=== PATIENT | male | born 1965 | race Caucasian/White ===

== ENCOUNTER 2023-06-30 13:14 | Inpatient (IN) | payer OTHER ==
[2023-06-30] VITALS (8 sets, daily range): BP systolic 155–221; BP diastolic 118–156
[~2023-06-30] VITALS: Ht 170.2 cm; Wt 89.0 kg
[2023-06-30 14:00] LABS: BASOPHILS PERCENT AUTO 1 % (0-2); EOSINOPHILS ABSOLUTE AUTO 0.18 K/mm3 (0.00-0.68); EOSINOPHILS PERCENT AUTO 2 % (0-6); Hematocrit 46.9 % (37.0-53.0); Hemoglobin 15.6 g/dL (13.5-17.5); IMMATURE GRAN ABSOLUTE AUTO 0.03 K/mm3 (0.00-0.10); IMMATURE GRAN PERCENT AUTO 0 % (0-1); LYMPHOCYTES ABSOLUTE AUTO 2.01 K/mm3 (0.84-5.20); LYMPHOCYTES PERCENT AUTO 18 % (21-46); MONOCYTES ABSOLUTE AUTO 0.94 K/mm3 (0.16-1.47); MONOCYTES PERCENT AUTO 9 % (4-13); Mean Corpuscular HGB 29.2 pg (26.0-34.0); Mean Corpuscular HGB Conc 33.3 g/dL (31.5-36.5); Mean Corpuscular Volume 88 fL (80-100); Mean Platelet Volume 10.2 fL (9.1-12.4); NEUTROPHILS ABSOLUTE AUTO 7.65 K/mm3 (1.96-9.15); NEUTROPHILS PERCENT AUTO 70 % (41-73); Platelet Count 235 K/mm3 (150-400); RDW Coefficient Variation 15.9 % (11.7-14.2); RDW Standard Deviation 49.7 fL (35.1-46.3); Red Blood Cell Count 5.34 M/mm3 (4.30-5.90); White Blood Cell Count 10.91 K/mm3 (4.00-11.30)
[2023-06-30 14:17] LABS: Albumin, Blood 3.5 g/dL (3.4-5.0); Albumin/Globulin Ratio 1.1 (0.8-1.8); Bilirubin, Total 1.1 mg/dL (0.1-1.0); Bun/Creatinine Ratio 19.7 (12.0-20.0); Calcium, Blood 8.5 mg/dL (8.5-10.1); Creatinine, Blood 1.32 mg/dL (0.60-1.20); Globulin, Blood 3.2 g/dL (2.2-4.0); Potassium, Blood 4.1 mmol/L (3.5-5.5); Total Protein, Blood 6.7 g/dL (6.4-8.2)
[2023-07-01] VITALS (13 sets, daily range): BP systolic 139–186; BP diastolic 99–139
[2023-07-01 03:51] LABS: Base Excess Venous 2.5 mmol/L; Bicarbonate Venous 26.7 mmol/L (24.0-30.0); PCO2 Venous 33.6 mmHg (38-42); pH Blood Venous 7.49 (7.34-7.37)
[2023-07-01 03:53] LABS: BASOPHILS ABSOLUTE AUTO 0.09 K/mm3 (0.00-0.23); BASOPHILS PERCENT AUTO 1 % (0-2); EOSINOPHILS ABSOLUTE AUTO 0.27 K/mm3 (0.00-0.68); EOSINOPHILS PERCENT AUTO 2 % (0-6); Hematocrit 42.1 % (37.0-53.0); Hemoglobin 13.9 g/dL (13.5-17.5); IMMATURE GRAN ABSOLUTE AUTO 0.04 K/mm3 (0.00-0.10); IMMATURE GRAN PERCENT AUTO 0 % (0-1); LYMPHOCYTES PERCENT AUTO 17 % (21-46); MONOCYTES ABSOLUTE AUTO 1.43 K/mm3 (0.16-1.47); MONOCYTES PERCENT AUTO 12 % (4-13); Mean Corpuscular HGB 29.6 pg (26.0-34.0); Mean Corpuscular Volume 90 fL (80-100); Mean Platelet Volume 10.4 fL (9.1-12.4); NEUTROPHILS ABSOLUTE AUTO 7.77 K/mm3 (1.96-9.15); NEUTROPHILS PERCENT AUTO 67 % (41-73); Platelet Count 211 K/mm3 (150-400); RDW Coefficient Variation 15.8 % (11.7-14.2); RDW Standard Deviation 50.7 fL (35.1-46.3); Red Blood Cell Count 4.69 M/mm3 (4.30-5.90)
[2023-07-01 04:08] LABS: Albumin, Blood 3.1 g/dL (3.4-5.0); Albumin/Globulin Ratio 1.1 (0.8-1.8); Bilirubin, Total 0.7 mg/dL (0.1-1.0); Bun/Creatinine Ratio 16.5 (12.0-20.0); Calcium, Blood 8.2 mg/dL (8.5-10.1); Creatinine, Blood 1.33 mg/dL (0.60-1.20); Globulin, Blood 2.9 g/dL (2.2-4.0); Potassium, Blood 3.8 mmol/L (3.5-5.5)
--- NOTE | 2023-07-01 05:16 | NUR ---
SHIFT SUMMARY PT A/OX4 AND COOPERATIVE OF CARE. PT ABLE TO EXPRESS NEEDS AND CALLS APPROPIATE. PT BP'S ELEVATED, SEE CHART. OTHER VSS THROUGHOUT SHIFT WITH O2 SATS INT EH 90'S ON RA. NO REPORT OF CHEST PAIN/PRESSURE THROUGHOUT SHIFT. NO REPORT OF SOB/DYSPNE THROUGHOUT SHIFT. PT REPORTED THAT HIS BREATHING "FEELS MUCH BETTER NOW." PT USING URINAL AT BEDSIDE. PT EDUCATED ON CURRENT ILLNESS AND MEDICATIONS THAT HE HAS RECIEVED.
--- NOTE | 2023-07-01 17:15 | NUR ---
SHIFT SUMMARY: PT HAS BEEN A&Ox4, ANSWERS QUESTIONS APPROPRIATELY AND COOPERATIVE W/CARE. PT DENIES SOB, STATES "I CAN BREATHE SO MUCH EASIER NOW", O2 SATS >92% ON RA. PT DENIES CHEST PAIN, HTN CONTINUES T/OUT SHIFT, PT MEDICATED PER EMAR W/SCHEDULED AND PRN MEDICATION W/SOME IMPROVEMENT TOWARD THE END OF THIS SHIFT. PT IS CONTINENT, HAS BEEN WALKING TO BATHROOM INDEPENDENTLY AND IS TOLERATING WELL. PT AND FAMILY WOULD BENEFIT FROM CONTINUED EDUCATION RE: DIET, EXERCISE, CURRENT ILLNESS AND HOW THEY ARE ALL RELATED. DIETARY CONSULTATION HAS BEEN ORDERED. AT THIS TIME, PT IS RESTING QUIETLY IN BEDSIDE CHAIR W/CALL LIGHT IN REACH. WILL CONTINUE TO MONITOR AND TREAT ACCORDINGLY.
[2023-07-02] VITALS (15 sets, daily range): BP systolic 139–175; BP diastolic 88–129
--- NOTE | 2023-07-02 04:52 | NUR ---
SHIFT SUMMARY PT A/OX4 AND COOPERATIVE OF CARE. PT ABLE TO EXPRESS NEEDS AND CALLS APPROPIATE. PT BP'S CONTINUE TO BE ELVATED, TREATED PER EMAR. BP DAILY MEDS INCREASED DURING DAY SHIFT. OTHER VSS THROUGHOUT SHIFT WITH O2 SATS IN CHRIS 90' ON RA. NO REPORT OF CHEST PAIN/PRESSURE THROUGOUT SHIFT. NO REPORT OF SOB/DYSPNEA THROUGHOUT SHIFT. PT UP TO TOUILET MULTIPLE TIMES DURING SHIFT, INDEPENDENT, TOLERATED WELL. PT HAD APNEIC EPISODES WHILE SLEEPING. SEE PREVIOUS NOTES. PT RPEORTS BE ABLE TO BREATH BETTER TODAY.
--- NOTE | 2023-07-02 13:37 | NUR ---
AM NOTE: PT HAS BEEN A&Ox4, ANSWERING QUESTIONS APPROPRIATELY, COOPERATIVE W/CARE. RESPIRATIONS EVEN AND UNLABORED, O2 SATS >93% ON RA, PT CONTINUES TO REPORT IMPROVEMENT TO INITIAL SOB. SR ON MONITOR, RATE 80s-90s, PT DENIES CHEST PAIN. HTN CONTINUES, PT RECEIVES ONE DOSE OF PRN MEDICATION AND TAKES SCHEDULED MEDICATIONS W/OUT DIFFICULTY. PT CONTINUES INDEPENDENT IN ROOM. CARDIOLOGY CONSULT TAKES PLACE THIS MORNING AT BEDSIDE, W/AN ANGIOGRAM BEING RECOMMENDED. PT HAS NOT AGREED TO PROCEDURE AT THIS POINT. DR TOWNSEND AND THIS RN HAVE BOTH PROVIDED EDUCATION RE: PROCEDURE AND RISKS/BENEFITS. DIETARY CONSULT HAS ALSO OCCURED AT BEDSIDE. WILL CONTINUE TO MONITOR AND TREAT ACCORDINGLY.
--- NOTE | 2023-07-02 17:37 | NUR ---
SHIFT SUMMARY: HTN CONTINUES, PT HAS BEEN MEDICATED PER EMAR. PT HAS AGREED TO PLAN OF ANGIOGRAM, HAS SIGNED CONSENT, CHIEF DIVERSITY OFFICER AND HOSPITALIST HAVE BEEN INFORMED, AWAITING FURTHER ORDERS. PT CONTINUES A&Ox4, COOPERATIVE W/CARE, INDEPENDENT IN ROOM. ALL ASSESSMENTS FOR IGNITABLE SOURCES HAVE BEEN NEGATIVE. PT RESTING IN ROOM W/FAMILY AT BEDSIDE. WILL CONTINUE TO MONITOR AND TREAT ACCORDINGLY UNTIL CHANGE OF SHIFT.
[2023-07-03] VITALS (12 sets, daily range): BP systolic 130–178; BP diastolic 87–115
[2023-07-03 04:23] LABS: Bun/Creatinine Ratio 18.1 (12.0-20.0); Calcium, Blood 8.3 mg/dL (8.5-10.1); Creatinine, Blood 1.27 mg/dL (0.60-1.20); Magnesium, Blood 2.4 mg/dL (1.6-2.4)
--- NOTE | 2023-07-03 05:41 | NUR ---
SHIFT SUMMARY NO ACUTE CHANGES THIS SHIFT. PT A&OX4. SP02>90% ON RA. DESATS WHEN SLEEPING. CALL TO MD LEVINE FOR CPAP. MD LEVINE W/ ORDERS FOR CPAP. PT WORE CPAP ENTIRE NIGHT W/O DESATTING. PT STATES, "WOW! i SLEPT!". TELEMETRY SHOWS NSR, HR 60'S-80'S. BP ELEVATED, HYDRALAZINE GIVEN PER EMAR X1 THIS SHIFT. PT INDEPENDENT IN ROOM. SHOWERED AT START OF SHIFT. SLEPT MOST OF NIGHT. NPO SINCE MIDNIGHT FOR CATH 07/03. CALL LIGHT IN REACH.
--- NOTE | 2023-07-03 07:29 | NUR ---
CARE ASSUMPTION / GONE FOR PROCEDURE PT SLEEPING, WEARING CPAP, TRANSITIONED TO RA WHEN WOKEN TO BE TAKEN DOWN FOR ANGIOGRAM. PT A&O X4, STATES "THAT'S THE BEST SLEEP I'VE EVER GOTTEN. I HAVEN'T DREAMT LIKE THAT IN YEARS." PT REPORTS THIS WAS FIRST TIME WEARING CPAP. MONITOR SHOWING SR-ST, HR 90s-110. BP ELEVATED, OTHERWISE VSS. PT TAKEN BY BED FOR ANGIOGRAM @ APPROX 0730.
--- NOTE | 2023-07-03 08:14 | NUR ---
BACK FROM DATA INTEGRITY ANALYST PT BACK TO W/ R RADIAL ACCESS SITE. TR BAND & ARM BOARD IN PLACE TO R WRIST. SITE WNL. PT A&O X4. VSS. SPO2 > 92% ON RA. PT AT BEDSIDE.
[2023-07-03] MEDS ORDERED: LISI20 PO (14:31)
[2023-07-03] MEDS ORDERED: ASPI81CH PO (14:31)
[2023-07-03] MEDS ORDERED: ATOR80 PO (14:31)
[2023-07-03] MEDS ORDERED: METO100ER PO (14:32)
[2023-07-03] MEDS ORDERED: TORSE20 PO (14:32)
--- NOTE | 2023-07-03 15:57 | NUR ---
DISCHARGE HOME PT A&O X4. VSS. SPO2 > 92% ON RA. R RADIAL ACCESS SITE RECOVERED WNL. TRANSPARENT DRESSING APPLIED & ARM BOARD IN PLACE. PT UNDERSTANDING & COMPLIANT W/ RADIAL ACCESS MOBILITY RESTRICTIONS. PIV REMOVED. DISCHARGE INSTRUCTIONS REVIEWED W/ PT & SENT HOME W/ PT. PT TAKEN OUT BY WHEELCHAIR W/ SPOUSE & BELONGINGS @ APPROX 1450.
== END 2023-07-03 14:50 | disposition home or self-care (01) | DRG 286 ==
LOC: ER 13:14 → PCU 16:24
PROVIDERS: Physician Assistant; ADMIT Internal Medicine
PROC: 4A023N7 Measurement of Cardiac Sampling and Pressure, Left Heart, Percutaneous Approach (ICD-10-PCS; principal; 2023-07-03)
PROC: B2111ZZ Fluoroscopy of Multiple Coronary Arteries using Low Osmolar Contrast (ICD-10-PCS; 2023-07-03)
DX: I11.0 Hypertensive heart disease with heart failure (principal); I50.21 Acute systolic (congestive) heart failure; N17.9 Acute kidney failure, unspecified; I16.0 Hypertensive urgency; G47.33 Obstructive sleep apnea (adult) (pediatric); I27.20 Pulmonary hypertension, unspecified; I25.10 Atherosclerotic heart disease of native coronary artery without angina pectoris; F17.210 Nicotine dependence, cigarettes, uncomplicated; F12.90 Cannabis use, unspecified, uncomplicated; E66.01 Morbid (severe) obesity due to excess calories; R74.01 Elevation of levels of liver transaminase levels; I77.810 Thoracic aortic ectasia; F10.10 Alcohol abuse, uncomplicated; F15.10 Other stimulant abuse, uncomplicated; Z71.51 Drug abuse counseling and surveillance of drug abuser; Z88.5 Allergy status to narcotic agent; Z68.31 Body mass index [BMI] 31.0-31.9, adult
CPT/HCPCS: 36415; 71046; 76937; 80048; 80053; 82803; 83690; 83735; 83880; 84443; 84484; 85025; 93005; 93010; 93306; 93454; 94660; 94762; 96374; 99152; 99285-25; A9270; C1769; C1887; C1894; J0360; J1644; J1650; J1940; J2250; J3010; J7030; J7050; Q9967

== ENCOUNTER → 2023-07-12 | Outpatient (CLI) | payer OTHER ==
[~2023-07-12] MED LIST: ASPI81CH PO; ATOR80 PO; LISI20 PO; METO100ER PO; TORSE20 PO
[2023-07-12 20:49] LABS: Bun/Creatinine Ratio 18.3 (12.0-20.0); Calcium, Blood 9.1 mg/dL (8.5-10.1); Creatinine, Blood 1.2 mg/dL (0.60-1.20)
== END | disposition home or self-care (01) ==
LOC: LAB 15:45 → LAB SHORT 15:45
PROVIDERS: Family Medicine
DX: N17.9 Acute kidney failure, unspecified (principal); R73.9 Hyperglycemia, unspecified
CPT/HCPCS: 80048; 83036

== ENCOUNTER 2024-07-02 10:03 | Emergency (ER) | payer OTHER ==
[~2024-07-02] VITALS: Ht 170.2 cm; Wt 83.9 kg
[2024-07-02] MEDS ORDERED: Ondansetron HCl 2 MG / ML 2ML Vial IV PRN (10:50)
[2024-07-02 11:08] LABS: BASOPHILS ABSOLUTE AUTO 0.08 K/mm3 (0.00-0.23); BASOPHILS PERCENT AUTO 1 % (0-2); EOSINOPHILS ABSOLUTE AUTO 0.26 K/mm3 (0.00-0.68); EOSINOPHILS PERCENT AUTO 3 % (0-6); Hematocrit 42.6 % (37.0-53.0); Hemoglobin 14.1 g/dL (13.5-17.5); IMMATURE GRAN ABSOLUTE AUTO 0.03 K/mm3 (0.00-0.10); IMMATURE GRAN PERCENT AUTO 0 % (0-1); LYMPHOCYTES ABSOLUTE AUTO 1.65 K/mm3 (0.84-5.20); LYMPHOCYTES PERCENT AUTO 19 % (21-46); MONOCYTES ABSOLUTE AUTO 0.66 K/mm3 (0.16-1.47); MONOCYTES PERCENT AUTO 8 % (4-13); Mean Corpuscular HGB 29.7 pg (26.0-34.0); Mean Corpuscular HGB Conc 33.1 g/dL (31.5-36.5); Mean Corpuscular Volume 90 fL (80-100); Mean Platelet Volume 9.8 fL (9.1-12.4); NEUTROPHILS PERCENT AUTO 70 % (41-73); Platelet Count 211 K/mm3 (150-400); RDW Coefficient Variation 14.2 % (11.7-14.2); RDW Standard Deviation 46.5 fL (35.1-46.3); Red Blood Cell Count 4.75 M/mm3 (4.30-5.90); White Blood Cell Count 8.78 K/mm3 (4.00-11.30)
[2024-07-02] MEDS ORDERED: Metoprolol Succinate 50 MG TABCR PO ONE (11:35)
[2024-07-02] MEDS ORDERED: Lisinopril 20 MG Tab PO ONE (11:35)
[2024-07-02 11:37] LABS: Albumin, Blood 3.7 g/dL (3.4-5.0); Albumin/Globulin Ratio 1.3 (0.8-1.8); Bilirubin, Total 0.7 mg/dL (0.1-1.0); Bun/Creatinine Ratio 27.4 (12.0-20.0); Calcium, Blood 8.7 mg/dL (8.5-10.1); Creatinine, Blood 1.17 mg/dL (0.60-1.20); Globulin, Blood 2.8 g/dL (2.2-4.0); Potassium, Blood 4.2 mmol/L (3.5-5.5); Total Protein, Blood 6.5 g/dL (6.4-8.2)
[2024-07-02] MEDS ORDERED: Furosemide 10 MG/ML 4ML Vial IV ONE (11:55)
[2024-07-02] MEDS ORDERED: ATOR80 PO (14:14)
[2024-07-02] MEDS ORDERED: LISI20 PO (14:14)
[2024-07-02] MEDS ORDERED: TORSE20 PO (14:14)
[2024-07-02] MEDS ORDERED: METO100ER PO (14:14)
[2024-07-02 15:15] VITALS: BP 129/97
== END 2024-07-02 15:31 | disposition home or self-care (01) ==
LOC: ER 10:03
PROVIDERS: Emergency Medicine
DX: I16.0 Hypertensive urgency (principal); I11.0 Hypertensive heart disease with heart failure; I50.9 Heart failure, unspecified; Z91.148 Patient's other noncompliance with medication regimen for other reason; Z87.891 Personal history of nicotine dependence; Z79.82 Long term (current) use of aspirin; Z79.899 Other long term (current) drug therapy; Z88.5 Allergy status to narcotic agent
CPT/HCPCS: 71046; 80053; 83690; 83880; 84484; 85025; 93005; 93010; 96374; 99285-25; A9270; J1940